=== PATIENT | male | born 1965 | race African-American/Black ===

== ENCOUNTER 2017-11-27 22:08 | Observation (INO) | payer MEDICARE, MEDICAID ==
[2017-11-27 23:46] LABS: INR-International Normal Ratio 1.1; Prothrombin Time 14.7 SEC (12.0-14.7)
[2017-11-27 23:47] LABS: PTT 36.2 SEC (22.9-36.1)
[2017-11-28 00:05] LABS: Troponin I 0.018 ng/mL (< 0.028)
[2017-11-28] MEDS ORDERED: Acetaminophen 325 MG TAB PO PRN (08:32)
[2017-11-28] MEDS ORDERED: Bisacodyl 5 MG TAB PO PRN (08:32)
[2017-11-28] MEDS ORDERED: Acetaminophen 650 MG Suppository PR PRN (08:32)
[2017-11-28] MEDS ORDERED: hydrALAZINE 20 MG/ML VIAL SLOW IVP PRN (08:32)
[2017-11-28] MEDS ORDERED: Labetalol HCl 100 MG/20 ML VIAL SLOW IVP PRN (08:32)
[2017-11-28] MEDS: Aspirin 325 mg Enteric Coated Tablet PO SCH (10:01)
[2017-11-28] MEDS: Enoxaparin Sodium 40 MG/0.4 ML SYRINGE SC SCH (10:01)
[2017-11-28] MEDS ORDERED: HumaLOG 300 UNITS/3 ML VIAL SC PRN (11:40)
[2017-11-28] MEDS ORDERED: Dextrose 5% in Water 1,000 ML IV PRN (11:40)
[2017-11-28] MEDS ORDERED: Dextrose 50% Abboject 50 ML SYRINGE SLOW IVP PRN (11:40)
--- NOTE | 2017-11-28 12:00 | HP ---
PRIMARY CARE PROVIDER: Unknown. CHIEF COMPLAINT: Altered mental status. HISTORY OF PRESENT ILLNESS: Mr. Morales is a 51-year-old gentleman who was seen at [facility] on 11/28/2017 following transfer from [place]. The patient currently does not wish to provide any history. Family could not be reached as well. Co llateral history was obtained from review of medical record and discussion with the emergency room ph ysician. Mr. Morales was reportedly diagnosed with a stroke one month ago. He had rehabilitation following th e stroke. He has not been taking his medications regularly. Yesterday around mid afternoon, he was found to be disoriented and confused, with a decreased responsiveness and trouble concentrating. He was also having left-sided weakness. He was taken to the emergency room at [place], where he had C T scan as well as CT angiogram of the head. The CT angiogram of the neck was also done. He was subs equently transferred to the emergency room at [facility] for further managemen t. He received aspirin at [place]. REVIEW OF SYSTEMS: Could not be completed secondary to patient's noncooperation. PAST MEDICAL HISTORY: Hypertension, diabetes mellitus type 2, coronary artery disease, cerebrovascul ar accident. PAST SURGICAL HISTORY: Coronary artery bypass graft surgery and valve replacement. FAMILY HISTORY: Cerebrovascular accident in mother and coronary artery disease in father. SOCIAL HISTORY: Unable to obtain. ALLERGIES: No known drug allergies. CURRENT MEDICATIONS: Patient is supposed to be on nifedipine 10 mg daily, spironolactone 25 mg daily , atorvastatin 20 mg daily, aspirin 325 mg daily, amiodarone 200 mg daily. PHYSICAL EXAMINATION: GENERAL: Mr. Morales is awake and alert, not in acute distress. VITAL SIGNS: He is afebrile. Blood pressure is 148/70, pulse 53, respiratory rate 20, and oxygen sa turation 100% on room air. He is afebrile. EYES: No scleral icterus. No conjunctival pallor. ENT: Moist mucosal membranes, no oropharyngeal erythema or exudates. NECK: Supple, nontender. Trachea is midline. RESPIRATORY: Accessory muscles of breathing are not active. Chest wall movements are symmetric bila terally. LUNGS: Clear to auscultation without wheeze, rhonchi or crepitations. CARDIOVASCULAR: S1 and S2 are heard, bradycardic and regular. Peripheral pulses palpable. No carot id bruit, no pericardial rub. ABDOMEN: Soft, nontender, bowel sounds are heard, no hepatomegaly, no splenomegaly. SKIN: No rashes or subcutaneous nodules. LYMPHATIC: No cervical lymphadenopathy. NEUROLOGIC: Full neurologic examination was not possible secondary to patient's noncooperation. The re is no facial droop. Pupils are equal and reactive to light bilaterally. Deep tendon reflexes 2+, plantar reflexes downgoing bilaterally. MUSCULOSKELETAL: The patient is moving all 4 extremities. PSYCHIATRIC: Patient is irritable, unable to assess orientation to person, place or time. DATABASE: Mr. Morales labs and investigations were reviewed. I reviewed his electrocardiogram, ic h shows sinus bradycardia, no ST changes to suggest an acute coronary syndrome. I also reviewed nonc ontrast CT scan of the brain done at [place], which does not show any acute changes. He also had C T angiogram of head and neck with IV contrast, which was unremarkable. He had elevated sodium of 146 , normal potassium, normal blood urea nitrogen, elevated creatinine of 1.8, normal calcium, unremarka ble liver profile, normal troponin I, normal white count, normal hemoglobin, normal platelet count, I NR 1.2. Urinalysis that is negative for nitrite and leukocyte esterase and urine drug screen that wa s positive for THC. ASSESSMENT AND PLAN: Mr. Morales is a 51-year-old gentleman who was seen at [facility] on 11/28/2017. His problem list includes: 1. Acute encephalopathy: Etiology is unclear at this time, likely related to recreational drug use. His baseline is unclear, we will need to discuss with family regarding what his baseline is. Recurr ent stroke will also need to be ruled out. We will check MRI brain, 2D echocardiogram and start him on aspirin and statin if the patient is agreeable. 2. Coronary artery disease: Appears to be stable. First troponin I is normal. Patient refused rec hecking the troponin. He does not appear to be in pain. 3. Hypertension: We will monitor the patient's vital signs and titrate antihypertensives as needed. 4. Diabetes mellitus type 2. We will start the patient on Accu-Cheks and insulin sliding scale. LEVEL OF RISK: High. LEVEL OF COMPLEXITY: High.
--- NOTE | 2017-11-28 13:25 | CON ---
DATE OF CONSULTATION: 11/28/2017 HISTORY OF PRESENT ILLNESS: I was asked to see the patient for altered mental status and a consult was placed in the chart. Per nursing staff, he is uncooperative and he has not been accepting any care. I reviewed the CT head from outside hospital that was placed in his chart and it did not show any acute intracranial lesion. The patient apparently was diagnosed with a stroke 1 month ago and he had rehab following the stroke and he was not compliant with his medications per chart and he was disoriented and confused and difficulty concentrating and was brought here. REVIEW OF SYSTEMS: The patient does not cooperate. PAST MEDICAL HISTORY: Hypertension, diabetes, coronary artery disease, CVA recently with NIH stroke scale of 11. PAST SURGICAL HISTORY: Coronary artery bypass graft and valve replacement. FAMILY HISTORY: CVA in his mother, coronary artery disease in his father. SOCIAL HISTORY: He refuses to talk. ALLERGIES: No known drug allergies. MEDICATIONS: He is supposed to be on nifedipine, spironolactone, atorvastatin and aspirin and amiodarone. PHYSICAL EXAMINATION: The patient refused any physical examination, told me to leave the room. IMPRESSION: The patient who is extremely uncooperative. His noncontrast CT performed at [place] did not show any acute infarct and apparently, he did have a CTA, which was unremarkable. At this time, I am not sure what I can contribute to his case due to lack of examination and inability to assess the patient. RECOMMENDATIONS: Please call me if you have any further questions from a stroke standpoint. Please perform MRI of the brain if he allows you to do so to make sure he did not have another acute stroke. JOYCE
[2017-11-28 14:42] LABS: Troponin I Less than 0.010 ng/mL (< 0.028)
[2017-11-28 14:49] LABS: Troponin I Less than 0.010 ng/mL (< 0.028)
--- NOTE | 2017-11-28 15:41 | MRI ---
MRI BRAIN WITHOUT CONTRAST: Date: 11/28/17 HISTORY: Blurry vision in left eye and twitches since last night. FINDINGS: There are no previous exams for comparison. No restricted diffusion is seen. No evidence of infarct, acute hemorrhage, midline shift, or abnormal extra-axial fluid collections are noted. There are multiple foci of T2 prolongation in the periventr icular white matter consistent with chronic small vessel ischemic disease. Scattered foci of decrease d signal are seen on the gradient echo sequence which may be due to hemosiderin or calcium deposits. The ventricular size is appropriate and the basilar cisterns are patent. There is mild mucosal diseas e in the paranasal sinuses. IMPRESSION: No evidence of acute intracranial process. POS: [facility]
[2017-11-28] MEDS: Atorvastatin Calcium 10 MG TAB PO SCH (21:34)
[2017-11-29] MEDS: Aspirin 325 mg Enteric Coated Tablet PO SCH (08:37)
[2017-11-29] MEDS: Enoxaparin Sodium 40 MG/0.4 ML SYRINGE SC SCH (08:37)
--- NOTE | 2017-11-29 09:17 | PDOC.PN ---
- Subjective Encounter Start Date: 11/29/17 Encounter Start Time: 09:15 Patient seen and examined. No new complaints. No overnight events. feeling better. - Objective MAR Reviewed: Yes Vital Signs & Weight: Vital Signs (12 hours) Temp Pulse Resp 11/29/17 07:26 98.1 F 53 L 18 11/28/17 21:30 98.1 F 53 L 18 Weight Weight 214 lb 11.2 oz I&O: 11/28/17 11/29/17 11/30/17 06:59 06:59 06:59 Intake Total 240 Balance 240 Phys Exam - Physical Examination Constitutional: NAD HEENT: sclera anicteric Neck: supple Respiratory: no wheezing, no rales Cardiovascular: RRR Gastrointestinal: soft Musculoskeletal: no edema Neurological: non-focal, moves all 4 limbs Psychiatric: normal affect, A&O x 3 Skin: no rash Dx/Plan (1) Weakness Code(s): R53.1 - WEAKNESS Status: Acute (2) HTN (hypertension) Code(s): I10 - ESSENTIAL (PRIMARY) HYPERTENSION Status: Acute (3) Diabetes mellitus Code(s): E11.9 - TYPE 2 DIABETES MELLITUS WITHOUT COMPLICATIONS Status: Acute (4) CVA (cerebral vascular accident) Code(s): I63.9 - CEREBRAL INFARCTION, UNSPECIFIED Status: Acute - Plan cont current plan of care, PT/OT * . Pt feeling better. wants to stay one more day. Echo pending MRI negative for acute events. will check labs. continue PT/OT.
[2017-11-29 09:54] LABS: #Eosinphils 0.2 thou/uL (0.0-0.7); #Lymphocytes 1.7 thou/uL (1.20-3.40); #Monocytes 0.4 thou/uL (0.11-0.59); %Basophils 0.5 % (0.0-1.0); %Eosinophils 2.6 % (0.0-10.0); %Lymphocytes 27.6 % (21.0-51.0); %Monocytes 5.9 % (0.0-10.0); %Neutrophils 63.5 % (42.0-75.0); Hemoglobin 13.4 g/dL (14.0-18.0); Mean Corpuscular HGB CONC 33.8 g/dL (32.0-36.0); Mean Corpuscular Hemoglobin 29.9 pg (27.0-31.0); Mean Corpuscular Volume 88.4 fL (78.0-98.0); Platelet Count 164 thou/uL (130-400); RBC Distribution Width 12.2 % (11.5-14.5); Red Blood Cell (RBC) Count 4.49 mill/uL (4.70-6.10); White Blood Cell (WBC) Count 6.2 thou/uL (4.8-10.8)
[2017-11-29 10:18] LABS: Anion Gap 14 mmol/L (10-20); BUN (Urea Nitrogen) 14 mg/dL (8.9-20.6); Calc. Creatinine Clearance 105 mL/min (70-130); Calcium 9.5 mg/dL (7.8-10.44); Carbon Dioxide 24 mmol/L (22-29); Cardiac Risk 5.5 (Less than 4.5); Chloride 106 mmol/L (98-107); Cholesterol 164 mg/dl (< 200 Desired); Estimated GFR-MDRD 81; Glucose 149 mg/dL (70-105); HDL Cholesterol 30 mg/dL (>60 Neg Risk); LDL Cholesterol, Calculated 111 mg/dL; Potassium 3.5 mmol/L (3.5-5.1); Sodium 140 mmol/L (136-145); Triglycerides 113 mg/dL (Less than 150)
--- NOTE | 2017-11-29 13:23 | PRG ---
DATE OF SERVICE: 11/29/2017 CHIEF COMPLAINT: Altered mental status and question of whether he had a new stroke. INTERVAL HISTORY: The patient is little more conversant today. He tells me he is blind and he canno t see and he also reported to me that he is walking with a limp and he cannot move both his legs albert use the bed sheets were on his legs. He thinks he is at home. When asked if he has a walker at home , he asked me what a walker was and stated, "she has everything and she is 80 years old. I do not newman ve any walkers." The patient does not report any other symptoms and recent workup, his MRI of the br ain is negative for any acute stroke. There are multiple foci of T2 prolongation in the periventricu lar white matter consistent with chronic small vessel ischemic disease. LABORATORY WORKUP: White count 6.2, hemoglobin 13.4, hematocrit 39.7, platelets 164,000. PT 147, IN R 31.1, PTT 36.2. Sodium 140, potassium 3.5, chloride 106, bicarbonate 24, BUN 14, creatinine 1.16, triglycerides 113, cholesterol 164, LDL 111, HDL 30. Heart disease risk ratio 5.5. PHYSICAL EXAMINATION: VITAL SIGNS: Blood pressure 147/73, pulse 55 and temperature 98.1. GENERAL APPEARANCE: Well-built, well-nourished gentleman, who seems to be comfortable in bed. CHEST: Clear vesicular breathing. CARDIOVASCULAR: S1, S2 heard. No murmurs. ABDOMEN: Soft. NEUROLOGIC: He says he is at home and was not able to give me the year or month or date and he repor sha he was blind. Cranial nerve examination, his pupils were reactive and he reported he could not s ee my hand, but was positive for light perception. No facial asymmetry. Tongue midline. Motor, nor mal bulk, tone, strength 5/5 in both upper extremities. The patient did not cooperate for his lower extremity strength exam, but spontaneously moves his legs. IMPRESSION: The patient with prior history of cerebrovascular accident, was brought in with possible altered mental status and he was very uncooperative yesterday and he did have prior rehab from [facility] per conversation between family and nurse. The patient has some vision problems since his stroke, but he is supposed to see his mission manager and his right eye has also been red recently and the pa tient was given walkers, but he does not walk at home with a walker and refuses to use it. At this t john, clinical diagnosis is most consistent with possible transient ischemic attack, but his MRI is ne gative for any acute stroke. 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 RECOMMENDATIONS: Please consult Ophthalmology and Psychiatry. No changes are needed for his current antiplatelet agents. Call me if you have any further questions. I do not think this patient has an acute stroke.
[2017-11-29] MEDS: Atorvastatin Calcium 10 MG TAB PO SCH (21:53)
--- NOTE | 2017-11-30 09:02 | PDOC.EVN ---
Event Note - Event Note Event Note: Patient reports he is doing well. He complains of "swelling" in his legs. He has refused to allow any nursing care. Does not believe he needs any medications and will not take them. Calves are TTP, but no masses or palpable cords noted. Will check D-dimer. If negative, will anticipate discharge to home as the patient is not accepting of any care. He said he would allow the D- dimer draw.
[2017-11-30] MEDS: Aspirin 325 mg Enteric Coated Tablet PO SCH (11:30)
[2017-11-30] MEDS: Enoxaparin Sodium 40 MG/0.4 ML SYRINGE SC SCH (11:31)
[2017-11-30 12:04] LABS: #Eosinphils 0.2 thou/uL (0.0-0.7); #Lymphocytes 1.9 thou/uL (1.20-3.40); #Monocytes 0.5 thou/uL (0.11-0.59); #Neutrophils 4.1 thou/uL (1.40-6.50); %Basophils 0.5 % (0.0-1.0); %Eosinophils 2.7 % (0.0-10.0); %Lymphocytes 28.8 % (21.0-51.0); %Monocytes 6.8 % (0.0-10.0); %Neutrophils 61.2 % (42.0-75.0); Hemoglobin 13.9 g/dL (14.0-18.0); Mean Corpuscular HGB CONC 33.7 g/dL (32.0-36.0); Mean Corpuscular Hemoglobin 29.8 pg (27.0-31.0); Mean Corpuscular Volume 88.6 fL (78.0-98.0); Mean Platelet Volume 8.5 fL (7.4-10.4); Platelet Count 174 thou/uL (130-400); RBC Distribution Width 12.2 % (11.5-14.5); Red Blood Cell (RBC) Count 4.67 mill/uL (4.70-6.10); White Blood Cell (WBC) Count 6.6 thou/uL (4.8-10.8)
[2017-11-30 12:12] LABS: Anion Gap 13 mmol/L (10-20); BUN (Urea Nitrogen) 12 mg/dL (8.9-20.6); Calc. Creatinine Clearance 90 mL/min (70-130); Calcium 9.7 mg/dL (7.8-10.44); Carbon Dioxide 27 mmol/L (22-29); Chloride 103 mmol/L (98-107); Estimated GFR-MDRD 67; Glucose 189 mg/dL (70-105); Potassium 3.8 mmol/L (3.5-5.1); Sodium 139 mmol/L (136-145)
[2017-11-30] MEDS: Atorvastatin Calcium 10 MG TAB PO SCH (22:22)
--- NOTE | 2017-11-30 22:47 | DIS ---
DATE OF ADMISSION: 11/27/2017 DATE OF DISCHARGE: 11/30/2017 DISCHARGE DIAGNOSES: 1. Encephalopathy. 2. History of coronary artery disease. 3. Hypertension. 4. Diabetes. HOSPITAL COURSE: This patient is a 51-year-old male who had a history of prior CVA. The patient had been diagnosed with a stroke 1 month prior and had subsequent rehabilitation. The patient had not been taking any medications as he felt like he did not need them. The patient was found to be somewhat confused and disoriented with decreased responsiveness and reported some left- sided weakness. He was taken to the emergency room in [place] where a CT scan was done and a CT angiogram of the head and neck. He was subsequently transferred to [facility] for further management. Here, the patient had relatively stable vital signs. The patient was unwilling to allow much in the way of physical exam, testing or intervention. An MRI of the brain was obtained which revealed no evidence of an acute intracranial process. There were multiple foci of T2 prolongation in the periventricular white matter consistent with chronic small vessel ischemic disease and scattered foci of decreased signal in the gradient echo sequence which may be due to hemosiderin or calcium deposits. There was no evidence of acute infarct or significant old infarct. Neurology did assess the patient who felt that he could not contribute much to the case as the patient was disallowing any sort of intervention. The patient did have an echocardiogram as well, which revealed mildly depressed left ventricle with an ejection fraction of 40%-45%. Ultimately on the day of discharge, the patient continued to refuse any attempts at intervention. He refused blood pressure checks. I did talk to him on the day of discharge and he reported some pain in his calves and some swelling. There was no appreciable swelling noted on exam. A D-dimer was obtained which was negative. It was felt the patient was stable for discharge as he was not allowing any further intervention. The patient was in agreement with that plan. He appeared to be cognitive enough to understand his decision. I will resume his home meds, but he does not believe he needs any meds and says he does not take any. Therefore, new meds will not be given. DISPOSITION: The patient is discharged to home. He is to follow up at [facility] in [place] and with his PCP. ACTIVITY: As tolerated. DIET: Needs to be on a heart healthy diet. He should return to the emergency department should he have any problems prior to the time of his followup. JOYCE
[2017-12-01 09:11] VITALS: BP 145/85
[2017-12-01] MEDS: Aspirin 325 mg Enteric Coated Tablet PO SCH (09:42)
[2017-12-01] MEDS: Enoxaparin Sodium 40 MG/0.4 ML SYRINGE SC SCH (09:44)
[2017-12-01 09:56] VITALS: TEMP 98.5
--- NOTE | 2017-12-06 20:39 | EKG ---
Test Reason : Blood Pressure : / mmHG Vent. Rate : 046 BPM Atrial Rate : 046 BPM P-R Int : 164 ms QRS Dur : 106 ms QT Int : 486 ms P-R-T Axes : -04 -11 068 degrees QTc Int : 425 ms Marked sinus bradycardia Moderate voltage criteria for LVH, may be normal variant Abnormal ECG Confirmed by KRYSTIN HAMMER D.O. ([id number]), restaurant expeditor ROSE JONES ([id number] on 12/06/2017 8:38:46 PM Referred By: Confirmed By:KRYSTIN HAMMER D.O.
== END 2017-12-01 11:59 | disposition home or self-care (01) ==
LOC: ERS 22:08 → 2SE 23:45
PROVIDERS: ADMIT Hospitalist; ATTEND Hospitalist
DX: G93.40 Encephalopathy, unspecified (principal); I25.10 Atherosclerotic heart disease of native coronary artery without angina pectoris; I10 Essential (primary) hypertension; E11.9 Type 2 diabetes mellitus without complications; Z79.82 Long term (current) use of aspirin; Z79.899 Other long term (current) drug therapy
CPT/HCPCS: 70551; 80048 ×2; 80061; 80307; 84484 ×3; 85025 ×2; 85379; 85610; 85730; 93005; 93306; 97139 ×5; 99285; G0378 ×3; G8978; G8979; G8980; G8987; G8988; G8989; 36415; G8996-GN-CN; G8997-GN-CN; J1650